=== PATIENT | female | born 1950 | race Caucasian/White ===

== ENCOUNTER 2022-05-03 15:04 | Inpatient (IN) ==
[2022-05-03] MEDS ORDERED: hydrALAZINE 20 MG/1 ML VIAL IV PRN (19:22)
[2022-05-03] MEDS ORDERED: GLUCAGON 1 MG VIAL IM PRN (19:22)
[2022-05-03] MEDS: ACETAMINOPHEN 325 MG TABLET PO PRN (19:24)
[2022-05-03] MEDS ORDERED: DEXTROSE 10% 250 ML BAG IV PRN (19:27)
[2022-05-03 19:53] LABS: Basophils # 0.1 10*3/uL (0.0-0.2); Basophils % 0.5 % (0.0-0.8); Eosinophils # 2.7 10*3/uL (0.0-0.87); Eosinophils % 29.2 % (0.00-10.9); Hematocrit 28.7 VOL% (35.7-47.0); Hemoglobin 9.6 GM/DL (12.0-16.0); Immature Granulocytes % 0.6 %; Immature Granulocytes Absolute 0.06 #; Lymphocytes # 0.7 10*3/uL (1.4-4.0); Lymphocytes % 7.8 % (21.3-54.2); Mean Corpuscular HGB Conc 33.4 GM/DL (32-36); Mean Corpuscular Volume 88.9 FL (87-102); Mean Platelet Volume 10.9 FL (9.6-12.0); Monocytes # 0.4 10*3/uL (0.11-0.8); Monocytes % 4.7 % (1.7-12.7); Neutrophils % 57.2 % (38.7-73.9); Platelet Count 128 T/CUMM (130-400); Red Blood Count 3.23 MC/CUMM (3.8-5.5); Red Cell Distribution Width 14.6 % (9.3-17.3); White Blood Count 9.3 T/CUMM (4-12)
[2022-05-03] MEDS ORDERED: AZITHROMYCIN INJ 500 MG in SODIUM CHLORIDE 0.9% 250 ML IV SCH (20:00)
[2022-05-03 20:13] LABS: Albumin 2.4 G/DL (3.4-5.0); Bilirubin,Total 0.4 MG/DL (0.20-1.00); Calcium 7.3 MG/DL (8.5-10.1); Osmolality,Calculated 285.8 MOS/KG (273-304); Potassium 4.1 MMOL/L (3.5-5.1); Total Protein 5.4 G/DL (6.4-8.2)
[2022-05-03] MEDS: LACTATED RINGERS 1,000 ML IV SCH (20:24)
[2022-05-03 20:29] LABS: Mucus,Urine Occasional /LPF (Occasional); Protein,Urine >=300 mg/dL (Negative); RBC,Urine 5 /HPF (0-4); Squamous Epithelial Cell,Urine Occasional /HPF (0-10); Urine Appearance Clear (Clear); Urine Color Yellow (Yellow); Urine pH 5.5 (4.5-8.0)
[2022-05-03 20:30] LABS: Bilirubin,Urine Negative (Negative); Blood, Urine Negative (Negative); Glucose,Urine (UA) Negative (Negative); Ketones,Urine Negative (Negative); Nitrite,Urine Negative (Negative); Urine Urobilinogen 0.2 eU/dL (<2.0)
[2022-05-03 21:11] LABS: Eosinophils 23 % (0-10); Lymphocytes 3 % (20-55); Platelet Estimate Adequate; Total Cells Counted 100
[2022-05-03] MEDS: ENOXAPARIN 30 MG/0.3 ML SYRINGE SUBCUT SCH (21:39)
[2022-05-03 22:37] LABS: Sedimentation Rate-Westergren 82 MM/HR (0-30)
[2022-05-04] MEDS: ALBUTEROL/IPRATROPIUM 3 ML NEB RESP TX SCH ×4 (02:51→19:33)
[2022-05-04] MEDS: ACETAMINOPHEN 325 MG TABLET PO PRN ×4 (04:12→21:25)
[2022-05-04 04:36] LABS: Basophils # 0.1 10*3/uL (0.0-0.2); Basophils % 0.5 % (0.0-0.8); Eosinophils # 2.9 10*3/uL (0.0-0.87); Eosinophils % 28.8 % (0.00-10.9); Hematocrit 30.8 VOL% (35.7-47.0); Hemoglobin 9.8 GM/DL (12.0-16.0); Immature Granulocytes % 0.7 %; Immature Granulocytes Absolute 0.07 #; Lymphocytes # 1.2 10*3/uL (1.4-4.0); Mean Corpuscular HGB Conc 31.8 GM/DL (32-36); Mean Corpuscular Volume 91.7 FL (87-102); Mean Platelet Volume 11.2 FL (9.6-12.0); Monocytes # 0.5 10*3/uL (0.11-0.8); Monocytes % 4.8 % (1.7-12.7); Neutrophils % 53.2 % (38.7-73.9); Platelet Count 138 T/CUMM (130-400); Red Blood Count 3.36 MC/CUMM (3.8-5.5); Red Cell Distribution Width 14.8 % (9.3-17.3); White Blood Count 9.9 T/CUMM (4-12)
[2022-05-04] MEDS: LACTATED RINGERS 1,000 ML IV SCH ×5 (04:49→22:17)
[2022-05-04 05:02] LABS: Band Neutrophils 2 % (0-10); Eosinophils 26 % (0-10); Lymphocytes 6 % (20-55)
[2022-05-04 05:04] LABS: Platelet Estimate Adequate
[2022-05-04 05:05] LABS: Alanine Aminotransferase 32 U/L (13-56); Albumin 2.4 G/DL (3.4-5.0); Alkaline Phosphatase 24 U/L (45-117); Aspartate Amino Transferase 22 U/L (0-37); Bilirubin,Total < 0.39 MG/DL (0.20-1.00); Blood Urea Nitrogen 50 MG/DL (7-18); Calcium 7.7 MG/DL (8.5-10.1); Carbon Dioxide 21 MMOL/L (21-32); Chloride 110 MMOL/L (98-107); Glucose 147 MG/DL (74-106); Osmolality,Calculated 294.4 MOS/KG (273-304); Potassium 3.9 MMOL/L (3.5-5.1); Sodium 140 MMOL/L (136-145); Total Cells Counted 100; Total Protein 5.5 G/DL (6.4-8.2)
[2022-05-04 05:43] LABS: Risk Ratio 5.37
[2022-05-04] MEDS: PANTOPRAZOLE 40 MG TABLET PO SCH (05:48)
[2022-05-04] MEDS: amLODIPine 10 MG TABLET PO SCH (09:37)
[2022-05-04] MEDS: diphenhydrAMINE CAP 25 MG CAPSULE PO PRN ×2 (09:38→21:24)
[2022-05-04] MEDS: ENOXAPARIN 30 MG/0.3 ML SYRINGE SUBCUT SCH (20:17)
[2022-05-04] MEDS: predniSONE 20 MG TABLET PO SCH (20:17)
[2022-05-05] MEDS: ALBUTEROL/IPRATROPIUM 3 ML NEB RESP TX SCH ×4 (01:44→19:20)
[2022-05-05] MEDS: LACTATED RINGERS 1,000 ML IV SCH (04:29)
[2022-05-05] MEDS: PANTOPRAZOLE 40 MG TABLET PO SCH (05:15)
[2022-05-05] MEDS: predniSONE 20 MG TABLET PO SCH ×3 (07:58→20:30)
[2022-05-05] MEDS: amLODIPine 10 MG TABLET PO SCH ×2 (07:58→08:53)
[2022-05-05 08:04] LABS: Alanine Aminotransferase 34 U/L (13-56); Albumin 2.1 G/DL (3.4-5.0); Alkaline Phosphatase 21 U/L (45-117); Aspartate Amino Transferase 19 U/L (0-37); Bilirubin,Total < 0.39 MG/DL (0.20-1.00); Blood Urea Nitrogen 49 MG/DL (7-18); Calcium 7.7 MG/DL (8.5-10.1); Carbon Dioxide 20 MMOL/L (21-32); Chloride 110 MMOL/L (98-107); Glucose 163 MG/DL (74-106); Osmolality,Calculated 291.7 MOS/KG (273-304); Potassium 4.6 MMOL/L (3.5-5.1); Sodium 138 MMOL/L (136-145); Total Protein 5.7 G/DL (6.4-8.2)
[2022-05-05 08:18] LABS: Basophils % 0.6 % (0.0-0.8); Eosinophils # 0.1 10*3/uL (0.0-0.87); Eosinophils % 1.9 % (0.00-10.9); Hematocrit 28.9 VOL% (35.7-47.0); Hemoglobin 9.5 GM/DL (12.0-16.0); Immature Granulocytes % 0.8 %; Immature Granulocytes Absolute 0.04 #; Lymphocytes # 0.6 10*3/uL (1.4-4.0); Lymphocytes % 12.4 % (21.3-54.2); Mean Corpuscular HGB Conc 32.9 GM/DL (32-36); Mean Corpuscular Volume 89.2 FL (87-102); Mean Platelet Volume 11.3 FL (9.6-12.0); Monocytes # 0.1 10*3/uL (0.11-0.8); Monocytes % 2.1 % (1.7-12.7); Neutrophils % 82.2 % (38.7-73.9); Platelet Count 151 T/CUMM (130-400); Red Blood Count 3.24 MC/CUMM (3.8-5.5); Red Cell Distribution Width 14.9 % (9.3-17.3); White Blood Count 4.8 T/CUMM (4-12)
[2022-05-05 08:33] LABS: Calcium 7.7 MG/DL (8.5-10.1); Osmolality,Calculated 292.7 MOS/KG (273-304); Potassium 4.2 MMOL/L (3.5-5.1)
[2022-05-05 08:39] LABS: Band Neutrophils 1 % (0-10); Eosinophils 1 % (0-10); Hypochromia Slight; Lymphocytes 12 % (20-55); Microcytosis Slight; Platelet Estimate Adequate; Total Cells Counted 100
[2022-05-05] MEDS ORDERED: DOCUSATE SODIUM 100 MG CAPSULE PO PRN (08:54)
[2022-05-05] MEDS: ACETAMINOPHEN 325 MG TABLET PO PRN ×2 (09:04→21:40)
[2022-05-05] MEDS ORDERED: SODIUM CHLORIDE 0.9% 1,000 ML IV SCH (09:30)
[2022-05-05 13:11] LABS: DRVVT Screen Ratio 1.27 ratio (<1.20); INR 1.4 (0.9-1.1)
[2022-05-05] MEDS ORDERED: GLUCAGON 1 MG VIAL IM PRN (13:58)
[2022-05-05] MEDS ORDERED: DEXTROSE 10% 250 ML BAG IV PRN (14:00)
[2022-05-05] MEDS: SODIUM BICARB INJ 50 MEQ in DEXTROSE 5% NACL 0.45% 1,000 ML IV SCH ×2 (14:25→20:30)
[2022-05-05] MEDS: INSULIN REGULAR 100 UNIT/ML SUBCUT SCH ×2 (17:05→20:30)
[2022-05-05] MEDS: PRIMIDONE 50 MG TABLET PO SCH (20:30)
[2022-05-05] MEDS: ENOXAPARIN 30 MG/0.3 ML SYRINGE SUBCUT SCH (20:30)
[2022-05-06] MEDS: ALBUTEROL/IPRATROPIUM 3 ML NEB RESP TX SCH ×5 (00:34→23:27)
[2022-05-06 05:15] LABS: Basophils % 0.5 % (0.0-0.8); Eosinophils # 0.1 10*3/uL (0.0-0.87); Eosinophils % 0.8 % (0.00-10.9); Hematocrit 27.2 VOL% (35.7-47.0); Hemoglobin 9.1 GM/DL (12.0-16.0); Immature Granulocytes % 1.1 %; Immature Granulocytes Absolute 0.07 #; Lymphocytes # 0.8 10*3/uL (1.4-4.0); Lymphocytes % 11.9 % (21.3-54.2); Mean Corpuscular HGB Conc 33.5 GM/DL (32-36); Mean Corpuscular Volume 88.9 FL (87-102); Mean Platelet Volume 11.3 FL (9.6-12.0); Monocytes # 0.4 10*3/uL (0.11-0.8); Monocytes % 5.6 % (1.7-12.7); Neutrophils % 80.1 % (38.7-73.9); Platelet Count 144 T/CUMM (130-400); Red Blood Count 3.06 MC/CUMM (3.8-5.5); Red Cell Distribution Width 15.1 % (9.3-17.3); White Blood Count 6.7 T/CUMM (4-12)
[2022-05-06 05:33] LABS: Calcium 7.7 MG/DL (8.5-10.1); Potassium 4.5 MMOL/L (3.5-5.1)
[2022-05-06] MEDS: PANTOPRAZOLE 40 MG TABLET PO SCH (05:35)
[2022-05-06 06:55] LABS: Hepatitis B Core IgM Quant 0.15 Index; Hepatitis B Surface Ag Quant < 0.10 Index; Hepatitis B Surface Ag Result Non-Reactive (NonReactive); Hepatitis C Virus Ab Quant 0.25 Index; Hepatitis C Virus Ab Result Non-Reactive (NonReactive)
[2022-05-06] MEDS: amLODIPine 10 MG TABLET PO SCH (09:02)
[2022-05-06] MEDS: predniSONE 20 MG TABLET PO SCH ×2 (09:02→21:03)
[2022-05-06] MEDS: INSULIN REGULAR 100 UNIT/ML SUBCUT SCH ×4 (09:03→21:40)
[2022-05-06] MEDS: ACETAMINOPHEN 325 MG TABLET PO PRN (09:12)
[2022-05-06] MEDS: SODIUM BICARB INJ 50 MEQ in DEXTROSE 5% NACL 0.45% 1,000 ML IV SCH (09:44)
[2022-05-06] MEDS ORDERED: SODIUM BICARB INJ 50 MEQ in DEXTROSE 5% NACL 0.45% 1,000 ML IV SCH (13:09)
[2022-05-06] MEDS: LOPERAMIDE 2 MG CAPSULE PO PRN (13:34)
[2022-05-06] MEDS ORDERED: VANCOMYCIN INJ 1,250 MG in SODIUM CHLORIDE 0.9% 250 ML IV SCH (19:00)
[2022-05-06] MEDS ORDERED: cefTRIAXone 1,000 MG in SODIUM CHLORIDE 0.9% 100 ML IV SCH (19:30)
[2022-05-06] MEDS ORDERED: VANCOMYCIN INJ 750 MG in SODIUM CHLORIDE 0.9% 250 ML IV PRN (19:51)
[2022-05-06] MEDS ORDERED: AZITHROMYCIN INJ 500 MG in SODIUM CHLORIDE 0.9% 250 ML IV SCH (20:00)
[2022-05-06] MEDS ORDERED: VANCOMYCIN INJ 1,750 MG in SODIUM CHLORIDE 0.9% 500 ML IV ONE (21:00)
[2022-05-06] MEDS: DEXTROSE 5% NACL 0.9% 1,000 ML IV SCH (21:02)
[2022-05-06] MEDS: ENOXAPARIN 30 MG/0.3 ML SYRINGE SUBCUT SCH (21:03)
[2022-05-06] MEDS: PRIMIDONE 50 MG TABLET PO SCH (21:03)
[2022-05-06] MEDS: diphenhydrAMINE CAP 25 MG CAPSULE PO PRN (22:33)
[2022-05-07] MEDS: ALBUTEROL/IPRATROPIUM 3 ML NEB RESP TX SCH ×5 (03:06→19:34)
[2022-05-07 04:54] LABS: Basophils % 0.2 % (0.0-0.8); Eosinophils % 0.2 % (0.00-10.9); Hematocrit 26.3 VOL% (35.7-47.0); Hemoglobin 8.6 GM/DL (12.0-16.0); Immature Granulocytes % 0.9 %; Immature Granulocytes Absolute 0.09 #; Lymphocytes # 0.5 10*3/uL (1.4-4.0); Lymphocytes % 5.4 % (21.3-54.2); Mean Corpuscular HGB Conc 32.7 GM/DL (32-36); Mean Corpuscular Volume 88.3 FL (87-102); Mean Platelet Volume 10.9 FL (9.6-12.0); Monocytes # 0.4 10*3/uL (0.11-0.8); Monocytes % 4.3 % (1.7-12.7); Platelet Count 197 T/CUMM (130-400); Red Blood Count 2.98 MC/CUMM (3.8-5.5); Red Cell Distribution Width 15.3 % (9.3-17.3); White Blood Count 9.8 T/CUMM (4-12)
[2022-05-07 05:23] LABS: Alanine Aminotransferase 30 U/L (13-56); Albumin 2.4 G/DL (3.4-5.0); Alkaline Phosphatase 21 U/L (45-117); Aspartate Amino Transferase 17 U/L (0-37); Bilirubin,Total < 0.39 MG/DL (0.20-1.00); Blood Urea Nitrogen 61 MG/DL (7-18); Calcium 7.4 MG/DL (8.5-10.1); Carbon Dioxide 19 MMOL/L (21-32); Chloride 106 MMOL/L (98-107); Glucose 168 MG/DL (74-106); Osmolality,Calculated 288.2 MOS/KG (273-304); Potassium 4.3 MMOL/L (3.5-5.1); Sodium 134 MMOL/L (136-145); Total Protein 5.9 G/DL (6.4-8.2)
[2022-05-07] MEDS: PANTOPRAZOLE 40 MG TABLET PO SCH (05:31)
[2022-05-07] MEDS: diphenhydrAMINE CAP 25 MG CAPSULE PO PRN ×2 (08:49→21:57)
[2022-05-07] MEDS: amLODIPine 10 MG TABLET PO SCH (08:50)
[2022-05-07] MEDS: predniSONE 20 MG TABLET PO SCH (08:50)
[2022-05-07] MEDS: INSULIN REGULAR 100 UNIT/ML SUBCUT SCH ×4 (08:50→21:58)
[2022-05-07] MEDS: methylPREDNISolone SOD SUC 125 MG/2 ML VIAL IV SCH ×3 (11:31→21:46)
[2022-05-07] MEDS: LOPERAMIDE 2 MG CAPSULE PO PRN ×3 (11:31→21:47)
[2022-05-07] MEDS: LEVOFLOXACIN INJ 500 MG/100 ML PREMIX IV SCH ×2 (11:32→11:40)
[2022-05-07] MEDS: DOXYCYCLINE HYCLATE INJ 100 MG in SODIUM CHLORIDE 0.9% 100 ML IV SCH (15:04)
[2022-05-07] MEDS: DEXTROSE 5% NACL 0.9% 1,000 ML IV SCH (15:05)
[2022-05-07 15:06] LABS: Phospholipid Ab IgM, S 18.9 MPL
[2022-05-07] MEDS: ENOXAPARIN 30 MG/0.3 ML SYRINGE SUBCUT SCH (21:47)
[2022-05-07] MEDS: PRIMIDONE 50 MG TABLET PO SCH (21:48)
[2022-05-08] MEDS: ALBUTEROL/IPRATROPIUM 3 ML NEB RESP TX SCH ×7 (00:03→23:37)
[2022-05-08] MEDS: DOXYCYCLINE HYCLATE INJ 100 MG in SODIUM CHLORIDE 0.9% 100 ML IV SCH ×3 (00:16→23:43)
[2022-05-08] MEDS: methylPREDNISolone SOD SUC 125 MG/2 ML VIAL IV SCH ×4 (04:21→21:45)
[2022-05-08] MEDS: DEXTROSE 5% NACL 0.9% 1,000 ML IV SCH ×4 (04:21→21:47)
[2022-05-08 05:46] LABS: Basophils % 0.2 % (0.0-0.8); Hemoglobin 8.9 GM/DL (12.0-16.0); Immature Granulocytes % 1.6 %; Immature Granulocytes Absolute 0.08 #; Lymphocytes # 0.5 10*3/uL (1.4-4.0); Lymphocytes % 9.7 % (21.3-54.2); Mean Corpuscular Volume 88.8 FL (87-102); Mean Platelet Volume 10.8 FL (9.6-12.0); Monocytes # 0.1 10*3/uL (0.11-0.8); Monocytes % 1.2 % (1.7-12.7); Neutrophils % 87.3 % (38.7-73.9); Platelet Count 240 T/CUMM (130-400); Red Blood Count 3.04 MC/CUMM (3.8-5.5); Red Cell Distribution Width 15.6 % (9.3-17.3); White Blood Count 4.9 T/CUMM (4-12)
[2022-05-08 06:31] LABS: Alanine Aminotransferase 40 U/L (13-56); Albumin 2.7 G/DL (3.4-5.0); Alkaline Phosphatase 23 U/L (45-117); Aspartate Amino Transferase 21 U/L (0-37); Bilirubin,Total < 0.39 MG/DL (0.20-1.00); Blood Urea Nitrogen 75 MG/DL (7-18); Calcium 7.3 MG/DL (8.5-10.1); Carbon Dioxide 19 MMOL/L (21-32); Chloride 107 MMOL/L (98-107); Glucose 188 MG/DL (74-106); Osmolality,Calculated 294.2 MOS/KG (273-304); Potassium 4.8 MMOL/L (3.5-5.1); Sodium 134 MMOL/L (136-145); Total Protein 6.4 G/DL (6.4-8.2)
[2022-05-08] MEDS: ACETAMINOPHEN 325 MG TABLET PO PRN ×3 (08:05→23:42)
[2022-05-08] MEDS: diphenhydrAMINE CAP 25 MG CAPSULE PO PRN ×2 (08:05→21:46)
[2022-05-08] MEDS: INSULIN REGULAR 100 UNIT/ML SUBCUT SCH ×4 (08:06→21:45)
[2022-05-08] MEDS: amLODIPine 10 MG TABLET PO SCH (08:06)
[2022-05-08 10:35] LABS: Calcium 6.8 MG/DL (8.5-10.1); Osmolality,Calculated 309.7 MOS/KG (273-304); Potassium 4.2 MMOL/L (3.5-5.1)
[2022-05-08] MEDS: LOPERAMIDE 2 MG CAPSULE PO PRN ×2 (12:37→18:03)
[2022-05-08] MEDS: ONDANSETRON 4 MG/2 ML VIAL IV PRN (15:25)
[2022-05-08 18:11] LABS: CDT Result Negative (Negative); CDT Specimen Source STOOL
[2022-05-08] MEDS: PRIMIDONE 50 MG TABLET PO SCH (21:46)
[2022-05-08] MEDS: ENOXAPARIN 30 MG/0.3 ML SYRINGE SUBCUT SCH (21:46)
[2022-05-09] MEDS: ALBUTEROL/IPRATROPIUM 3 ML NEB RESP TX SCH ×6 (03:20→23:53)
[2022-05-09] MEDS: methylPREDNISolone SOD SUC 125 MG/2 ML VIAL IV SCH ×4 (04:50→22:10)
[2022-05-09 05:17] LABS: Basophils % 0.2 % (0.0-0.8); Hematocrit 25.4 VOL% (35.7-47.0); Hemoglobin 8.1 GM/DL (12.0-16.0); Immature Granulocytes % 1.3 %; Immature Granulocytes Absolute 0.07 #; Lymphocytes # 0.5 10*3/uL (1.4-4.0); Lymphocytes % 9.1 % (21.3-54.2); Mean Corpuscular HGB Conc 31.9 GM/DL (32-36); Mean Corpuscular Volume 90.4 FL (87-102); Mean Platelet Volume 10.9 FL (9.6-12.0); Monocytes # 0.1 10*3/uL (0.11-0.8); Monocytes % 2.1 % (1.7-12.7); Neutrophils % 87.3 % (38.7-73.9); Platelet Count 243 T/CUMM (130-400); Red Blood Count 2.81 MC/CUMM (3.8-5.5); Red Cell Distribution Width 15.7 % (9.3-17.3); White Blood Count 5.3 T/CUMM (4-12)
[2022-05-09] MEDS: DEXTROSE 5% NACL 0.9% 1,000 ML IV SCH ×2 (05:37→17:37)
[2022-05-09 05:42] LABS: Calcium 7.1 MG/DL (8.5-10.1); Potassium 4.3 MMOL/L (3.5-5.1)
[2022-05-09] MEDS: amLODIPine 10 MG TABLET PO SCH (08:18)
[2022-05-09] MEDS: INSULIN REGULAR 100 UNIT/ML SUBCUT SCH ×4 (08:18→22:07)
[2022-05-09 08:41] LABS: Bacteria,Urine Occasional /HPF (Few); Glucose,Urine (UA) 100 mg/dL (Negative); Ketones,Urine Negative (Negative); Mucus,Urine Occasional /LPF (Occasional); Nitrite,Urine Negative (Negative); Protein,Urine Trace mg/dL (Negative); RBC,Urine 6 /HPF (0-4); Urine Appearance Clear (Clear); Urine Color Yellow (Yellow); Urine Specific Gravity 1.015 (1.001-1.035); Urine pH 5.5 (4.5-8.0)
[2022-05-09 08:42] LABS: Bilirubin,Urine Negative (Negative); Blood, Urine Small mg/dL (Negative); Urine Urobilinogen 0.2 eU/dL (<2.0)
[2022-05-09] MEDS ORDERED: FUROSEMIDE 40 MG/4 ML VIAL IV ONE (10:30)
[2022-05-09] MEDS: ACETAMINOPHEN 325 MG TABLET PO PRN ×2 (10:39→17:20)
[2022-05-09] MEDS: diphenhydrAMINE CAP 25 MG CAPSULE PO PRN ×2 (10:39→22:06)
[2022-05-09] MEDS: FAMOTIDINE 20 MG/2 ML VIAL IV SCH ×2 (12:24→22:26)
[2022-05-09] MEDS: traMADol 50 MG TABLET PO PRN ×2 (12:24→22:06)
[2022-05-09] MEDS: DOXYCYCLINE HYCLATE INJ 100 MG in SODIUM CHLORIDE 0.9% 100 ML IV SCH (12:25)
[2022-05-09] MEDS: ENOXAPARIN 30 MG/0.3 ML SYRINGE SUBCUT SCH (22:06)
[2022-05-09] MEDS: ONDANSETRON 4 MG/2 ML VIAL IV PRN (22:06)
[2022-05-09] MEDS: PRIMIDONE 50 MG TABLET PO SCH (22:07)
[2022-05-10] MEDS: DOXYCYCLINE HYCLATE INJ 100 MG in SODIUM CHLORIDE 0.9% 100 ML IV SCH ×3 (00:29→23:09)
[2022-05-10] MEDS: ALBUTEROL/IPRATROPIUM 3 ML NEB RESP TX SCH ×6 (02:54→23:51)
[2022-05-10] MEDS: DEXTROSE 5% NACL 0.9% 1,000 ML IV SCH ×3 (04:20→23:13)
[2022-05-10] MEDS: methylPREDNISolone SOD SUC 125 MG/2 ML VIAL IV SCH (04:22)
[2022-05-10 05:47] LABS: Calcium 7.1 MG/DL (8.5-10.1); Osmolality,Calculated 303.7 MOS/KG (273-304); Potassium 4.6 MMOL/L (3.5-5.1)
[2022-05-10] MEDS: INSULIN REGULAR 100 UNIT/ML SUBCUT SCH ×4 (08:45→20:50)
[2022-05-10] MEDS: ONDANSETRON 4 MG/2 ML VIAL IV PRN ×2 (08:47→16:51)
[2022-05-10] MEDS: traMADol 50 MG TABLET PO PRN ×2 (08:52→20:49)
[2022-05-10] MEDS: diphenhydrAMINE CAP 25 MG CAPSULE PO PRN ×3 (08:52→23:18)
[2022-05-10] MEDS: amLODIPine 10 MG TABLET PO SCH (08:53)
[2022-05-10 10:15] LABS: Myeloperoxidase Antibody < 0.2 U
[2022-05-10] MEDS: FAMOTIDINE 20 MG/2 ML VIAL IV SCH (11:36)
[2022-05-10 12:47] LABS: Cyclic Citrull Peptide Interp Negative
[2022-05-10] MEDS: predniSONE 20 MG TABLET PO SCH (13:58)
[2022-05-10] MEDS: PRIMIDONE 50 MG TABLET PO SCH (20:49)
[2022-05-10] MEDS: ENOXAPARIN 30 MG/0.3 ML SYRINGE SUBCUT SCH (20:50)
[2022-05-10] MEDS: ACETAMINOPHEN 325 MG TABLET PO PRN (23:12)
[2022-05-11] MEDS: ALBUTEROL/IPRATROPIUM 3 ML NEB RESP TX SCH ×6 (03:40→23:50)
[2022-05-11] MEDS: FAMOTIDINE 20 MG/2 ML VIAL IV SCH ×2 (04:34→15:20)
[2022-05-11 05:11] LABS: Calcium 7.2 MG/DL (8.5-10.1); Osmolality,Calculated 301.5 MOS/KG (273-304); Potassium 3.9 MMOL/L (3.5-5.1)
[2022-05-11] MEDS: ACETAMINOPHEN 325 MG TABLET PO PRN (09:13)
[2022-05-11] MEDS: amLODIPine 10 MG TABLET PO SCH (09:14)
[2022-05-11] MEDS: diphenhydrAMINE CAP 25 MG CAPSULE PO PRN (09:14)
[2022-05-11] MEDS: predniSONE 20 MG TABLET PO SCH (09:15)
[2022-05-11] MEDS: ONDANSETRON 4 MG/2 ML VIAL IV PRN ×2 (09:15→23:00)
[2022-05-11] MEDS: INSULIN REGULAR 100 UNIT/ML SUBCUT SCH ×4 (09:18→20:45)
[2022-05-11] MEDS: DOXYCYCLINE HYCLATE INJ 100 MG in SODIUM CHLORIDE 0.9% 100 ML IV SCH (11:34)
[2022-05-11] MEDS ORDERED: FUROSEMIDE 40 MG/4 ML VIAL IV ONE (12:27)
[2022-05-11] MEDS: CALCIUM CARBONATE CHEW 500 MG TABLET PO SCH ×2 (15:24→20:45)
[2022-05-11] MEDS: DEXTROSE 5% NACL 0.9% 1,000 ML IV SCH (19:40)
[2022-05-11] MEDS: traMADol 50 MG TABLET PO PRN (20:44)
[2022-05-11] MEDS: ENOXAPARIN 30 MG/0.3 ML SYRINGE SUBCUT SCH (20:45)
[2022-05-11] MEDS: PRIMIDONE 50 MG TABLET PO SCH (20:45)
[2022-05-12] MEDS: DOXYCYCLINE HYCLATE INJ 100 MG in SODIUM CHLORIDE 0.9% 100 ML IV SCH ×2 (00:07→12:26)
[2022-05-12] MEDS: ACETAMINOPHEN 325 MG TABLET PO PRN ×2 (00:07→10:12)
[2022-05-12] MEDS: diphenhydrAMINE CAP 25 MG CAPSULE PO PRN (00:07)
[2022-05-12] MEDS: ALBUTEROL/IPRATROPIUM 3 ML NEB RESP TX SCH ×6 (03:45→23:53)
[2022-05-12] MEDS: FAMOTIDINE 20 MG/2 ML VIAL IV SCH ×2 (03:55→15:31)
[2022-05-12 08:14] LABS: Osmolality,Calculated 305.3 MOS/KG (273-304); Potassium 3.8 MMOL/L (3.5-5.1)
[2022-05-12] MEDS: INSULIN REGULAR 100 UNIT/ML SUBCUT SCH ×4 (09:02→20:25)
[2022-05-12] MEDS: amLODIPine 10 MG TABLET PO SCH (09:24)
[2022-05-12] MEDS: CALCIUM CARBONATE CHEW 500 MG TABLET PO SCH ×3 (09:24→20:25)
[2022-05-12] MEDS: predniSONE 20 MG TABLET PO SCH (09:25)
[2022-05-12 09:37] LABS: DRVVT Confirmation 0.89 ratio (<1.20); PT Mix 1:1 (Mayo Reflex) 12.5 sec (9.4 - 12.5); Thrombin Time (Bovine), P 21.1 sec
[2022-05-12] MEDS ORDERED: FUROSEMIDE 40 MG/4 ML VIAL IV ONE (09:55)
[2022-05-12] MEDS: ONDANSETRON 4 MG/2 ML VIAL IV PRN ×2 (15:32→19:34)
[2022-05-12] MEDS: LOPERAMIDE 2 MG CAPSULE PO PRN (19:34)
[2022-05-12] MEDS: PRIMIDONE 50 MG TABLET PO SCH (20:24)
[2022-05-12] MEDS: ENOXAPARIN 30 MG/0.3 ML SYRINGE SUBCUT SCH (20:25)
[2022-05-13] MEDS: ALBUTEROL/IPRATROPIUM 3 ML NEB RESP TX SCH ×5 (03:30→20:25)
[2022-05-13] MEDS: FAMOTIDINE 20 MG/2 ML VIAL IV SCH ×2 (03:38→17:52)
[2022-05-13 06:21] LABS: Calcium 7.3 MG/DL (8.5-10.1); Osmolality,Calculated 301.4 MOS/KG (273-304); Potassium 3.3 MMOL/L (3.5-5.1)
[2022-05-13] MEDS: ONDANSETRON 4 MG/2 ML VIAL IV PRN ×2 (06:26→15:35)
[2022-05-13] MEDS: INSULIN REGULAR 100 UNIT/ML SUBCUT SCH ×4 (08:13→21:59)
[2022-05-13] MEDS ORDERED: ONDANSETRON 4 MG/2 ML VIAL IV ONE (09:08)
[2022-05-13] MEDS: CITALOPRAM 20 MG TABLET PO SCH (09:39)
[2022-05-13] MEDS: predniSONE 20 MG TABLET PO SCH (09:39)
[2022-05-13] MEDS: amLODIPine 10 MG TABLET PO SCH (09:39)
[2022-05-13] MEDS: CALCIUM CARBONATE CHEW 500 MG TABLET PO SCH ×3 (09:41→22:02)
[2022-05-13] MEDS: traMADol 50 MG TABLET PO PRN ×2 (11:21→22:09)
[2022-05-13] MEDS: ACETAMINOPHEN 325 MG TABLET PO PRN (15:34)
[2022-05-13] MEDS: PRIMIDONE 50 MG TABLET PO SCH (22:02)
[2022-05-13] MEDS: ENOXAPARIN 30 MG/0.3 ML SYRINGE SUBCUT SCH (22:02)
[2022-05-14] MEDS: ALBUTEROL/IPRATROPIUM 3 ML NEB RESP TX SCH ×6 (00:38→21:58)
[2022-05-14] MEDS: FAMOTIDINE 20 MG/2 ML VIAL IV SCH ×2 (04:40→15:36)
[2022-05-14 05:10] LABS: Calcium 6.8 MG/DL (8.5-10.1); Osmolality,Calculated 290.5 MOS/KG (273-304); Potassium 3.3 MMOL/L (3.5-5.1)
[2022-05-14] MEDS: traMADol 50 MG TABLET PO PRN (07:43)
[2022-05-14] MEDS: INSULIN REGULAR 100 UNIT/ML SUBCUT SCH ×4 (08:11→21:22)
[2022-05-14] MEDS: predniSONE 20 MG TABLET PO SCH (09:46)
[2022-05-14] MEDS: CALCIUM CARBONATE CHEW 500 MG TABLET PO SCH ×3 (09:46→21:23)
[2022-05-14] MEDS: CITALOPRAM 20 MG TABLET PO SCH (09:46)
[2022-05-14] MEDS: amLODIPine 10 MG TABLET PO SCH (09:46)
[2022-05-14] MEDS: ONDANSETRON 4 MG/2 ML VIAL IV PRN (11:22)
[2022-05-14] MEDS ORDERED: PROCHLORPERAZINE 5 MG TABLET PO SCH (15:00)
[2022-05-14] MEDS: ONDANSETRON 4 MG/2 ML VIAL IV SCH ×3 (15:34→23:29)
[2022-05-14] MEDS: BACILLUS COAGULANS CAPLET PO SCH (15:47)
[2022-05-14] MEDS: PROCHLORPERAZINE 10 MG TABLET PO SCH ×2 (15:47→21:14)
[2022-05-14] MEDS: PRIMIDONE 50 MG TABLET PO SCH (21:22)
[2022-05-14] MEDS: ENOXAPARIN 30 MG/0.3 ML SYRINGE SUBCUT SCH (21:22)
[2022-05-15] MEDS: ALBUTEROL/IPRATROPIUM 3 ML NEB RESP TX SCH ×7 (01:18→23:00)
[2022-05-15] MEDS: ONDANSETRON 4 MG/2 ML VIAL IV SCH ×4 (03:30→15:25)
[2022-05-15] MEDS: FAMOTIDINE 20 MG/2 ML VIAL IV SCH ×2 (03:30→15:26)
[2022-05-15 06:47] LABS: Basophils % 0.1 % (0.0-0.8); Eosinophils # 0.5 10*3/uL (0.0-0.87); Hematocrit 31.5 VOL% (35.7-47.0); Hemoglobin 10.7 GM/DL (12.0-16.0); Immature Granulocytes % 1.5 %; Immature Granulocytes Absolute 0.18 #; Lymphocytes # 1.1 10*3/uL (1.4-4.0); Lymphocytes % 9.7 % (21.3-54.2); Mean Corpuscular Volume 85.1 FL (87-102); Mean Platelet Volume 10.5 FL (9.6-12.0); Monocytes # 0.7 10*3/uL (0.11-0.8); Monocytes % 5.9 % (1.7-12.7); Neutrophils % 78.8 % (38.7-73.9); Platelet Count 335 T/CUMM (130-400); Red Cell Distribution Width 14.9 % (9.3-17.3); White Blood Count 11.8 T/CUMM (4-12)
[2022-05-15 07:03] LABS: Calcium 6.8 MG/DL (8.5-10.1); Osmolality,Calculated 290.4 MOS/KG (273-304); Potassium 3.2 MMOL/L (3.5-5.1)
[2022-05-15] MEDS: INSULIN REGULAR 100 UNIT/ML SUBCUT SCH ×4 (07:44→21:10)
[2022-05-15] MEDS: BACILLUS COAGULANS CAPLET PO SCH (10:00)
[2022-05-15] MEDS: amLODIPine 10 MG TABLET PO SCH (10:00)
[2022-05-15] MEDS: CITALOPRAM 20 MG TABLET PO SCH (10:01)
[2022-05-15] MEDS: CALCIUM CARBONATE CHEW 500 MG TABLET PO SCH ×3 (10:01→21:10)
[2022-05-15] MEDS: PROCHLORPERAZINE 10 MG TABLET PO SCH ×3 (10:01→21:10)
[2022-05-15] MEDS: SCOPOLAMINE 1.5 MG PATCH TRANSDERM SCH (15:20)
[2022-05-15] MEDS: PRIMIDONE 50 MG TABLET PO SCH (21:10)
[2022-05-15] MEDS: ENOXAPARIN 30 MG/0.3 ML SYRINGE SUBCUT SCH (22:28)
[2022-05-16] MEDS: ONDANSETRON 4 MG/2 ML VIAL IV SCH ×8 (01:25→23:15)
[2022-05-16] MEDS: FAMOTIDINE 20 MG/2 ML VIAL IV SCH ×2 (03:30→16:30)
[2022-05-16] MEDS: ALBUTEROL/IPRATROPIUM 3 ML NEB RESP TX SCH ×6 (03:55→23:00)
[2022-05-16 05:15] LABS: Basophils % 0.1 % (0.0-0.8); Eosinophils % 6.9 % (0.00-10.9); Hematocrit 33.3 VOL% (35.7-47.0); Hemoglobin 10.9 GM/DL (12.0-16.0); Immature Granulocytes % 1.2 %; Immature Granulocytes Absolute 0.18 #; Lymphocytes # 1.3 10*3/uL (1.4-4.0); Lymphocytes % 8.9 % (21.3-54.2); Mean Corpuscular HGB Conc 32.7 GM/DL (32-36); Mean Corpuscular Volume 86.3 FL (87-102); Mean Platelet Volume 11.1 FL (9.6-12.0); Monocytes # 0.9 10*3/uL (0.11-0.8); Monocytes % 6.2 % (1.7-12.7); Neutrophils % 76.7 % (38.7-73.9); Platelet Count 363 T/CUMM (130-400); Red Blood Count 3.86 MC/CUMM (3.8-5.5); Red Cell Distribution Width 14.6 % (9.3-17.3); White Blood Count 14.6 T/CUMM (4-12)
[2022-05-16 05:23] LABS: Calcium 7.3 MG/DL (8.5-10.1); Osmolality,Calculated 286.4 MOS/KG (273-304); Potassium 3.1 MMOL/L (3.5-5.1)
[2022-05-16] MEDS: INSULIN REGULAR 100 UNIT/ML SUBCUT SCH ×4 (08:02→19:30)
[2022-05-16] MEDS: BACILLUS COAGULANS CAPLET PO SCH (10:17)
[2022-05-16] MEDS: CITALOPRAM 20 MG TABLET PO SCH (10:17)
[2022-05-16] MEDS: CALCIUM CARBONATE CHEW 500 MG TABLET PO SCH ×3 (10:17→22:17)
[2022-05-16] MEDS: amLODIPine 10 MG TABLET PO SCH (10:18)
[2022-05-16] MEDS: PROCHLORPERAZINE 10 MG TABLET PO SCH ×3 (10:21→19:30)
[2022-05-16] MEDS: NYSTATIN 500,000 UNIT/5 ML UDCUP SWISH/SWAL SCH ×4 (10:52→19:30)
[2022-05-16] MEDS: FLUCONAZOLE INJ 200 MG/100 ML PREMIX IV SCH (10:56)
[2022-05-16] MEDS ORDERED: POTASSIUM CHLORIDE 20 MEQ TABLET PO ONE (15:40)
[2022-05-16] MEDS: PRIMIDONE 50 MG TABLET PO SCH (19:30)
[2022-05-16] MEDS: ENOXAPARIN 30 MG/0.3 ML SYRINGE SUBCUT SCH (22:16)
[2022-05-17] MEDS: ALBUTEROL/IPRATROPIUM 3 ML NEB RESP TX SCH ×6 (03:00→20:06)
[2022-05-17] MEDS: ONDANSETRON 4 MG/2 ML VIAL IV SCH ×3 (03:00→11:51)
[2022-05-17] MEDS: FAMOTIDINE 20 MG/2 ML VIAL IV SCH ×2 (04:00→15:16)
[2022-05-17 05:30] LABS: Basophils % 0.2 % (0.0-0.8); Eosinophils % 7.7 % (0.00-10.9); Hematocrit 33.4 VOL% (35.7-47.0); Hemoglobin 10.9 GM/DL (12.0-16.0); Immature Granulocytes % 1.3 %; Immature Granulocytes Absolute 0.17 #; Lymphocytes # 1.1 10*3/uL (1.4-4.0); Lymphocytes % 8.3 % (21.3-54.2); Mean Corpuscular HGB Conc 32.6 GM/DL (32-36); Mean Corpuscular Volume 87.4 FL (87-102); Mean Platelet Volume 11.3 FL (9.6-12.0); Monocytes # 0.9 10*3/uL (0.11-0.8); Monocytes % 6.7 % (1.7-12.7); Neutrophils % 75.8 % (38.7-73.9); Platelet Count 292 T/CUMM (130-400); Red Blood Count 3.82 MC/CUMM (3.8-5.5); Red Cell Distribution Width 14.5 % (9.3-17.3); White Blood Count 13.1 T/CUMM (4-12)
[2022-05-17 05:59] LABS: Calcium 7.3 MG/DL (8.5-10.1); Osmolality,Calculated 284.4 MOS/KG (273-304); Potassium 3.5 MMOL/L (3.5-5.1)
[2022-05-17] MEDS: INSULIN REGULAR 100 UNIT/ML SUBCUT SCH ×4 (08:07→21:00)
[2022-05-17] MEDS: BACILLUS COAGULANS CAPLET PO SCH (08:09)
[2022-05-17] MEDS: CITALOPRAM 20 MG TABLET PO SCH (08:09)
[2022-05-17] MEDS: NYSTATIN 500,000 UNIT/5 ML UDCUP SWISH/SWAL SCH ×4 (08:09→22:43)
[2022-05-17] MEDS: PROCHLORPERAZINE 10 MG TABLET PO SCH (08:09)
[2022-05-17] MEDS: amLODIPine 10 MG TABLET PO SCH (08:09)
[2022-05-17] MEDS: FLUCONAZOLE INJ 200 MG/100 ML PREMIX IV SCH (08:13)
[2022-05-17] MEDS: CALCIUM CARBONATE CHEW 500 MG TABLET PO SCH (08:13)
[2022-05-17] MEDS ORDERED: ONDANSETRON 4 MG/2 ML VIAL IV PRN (14:38)
[2022-05-17] MEDS ORDERED: POTASSIUM CHLORIDE 20 MEQ TABLET PO ONE (15:00)
[2022-05-17] MEDS: ENOXAPARIN 30 MG/0.3 ML SYRINGE SUBCUT SCH (21:00)
[2022-05-17] MEDS: PRIMIDONE 50 MG TABLET PO SCH (21:00)
[2022-05-18] MEDS: ALBUTEROL/IPRATROPIUM 3 ML NEB RESP TX SCH ×4 (00:31→11:30)
[2022-05-18 05:41] LABS: Basophils % 0.2 % (0.0-0.8); Eosinophils % 6.8 % (0.00-10.9); Hematocrit 32.3 VOL% (35.7-47.0); Hemoglobin 10.8 GM/DL (12.0-16.0); Immature Granulocytes % 1.6 %; Immature Granulocytes Absolute 0.23 #; Lymphocytes # 1.1 10*3/uL (1.4-4.0); Lymphocytes % 8.1 % (21.3-54.2); Mean Corpuscular HGB Conc 33.4 GM/DL (32-36); Mean Corpuscular Volume 87.1 FL (87-102); Mean Platelet Volume 11.4 FL (9.6-12.0); Monocytes % 6.9 % (1.7-12.7); Neutrophils % 76.4 % (38.7-73.9); Platelet Count 289 T/CUMM (130-400); Red Blood Count 3.71 MC/CUMM (3.8-5.5); Red Cell Distribution Width 14.3 % (9.3-17.3)
[2022-05-18 06:09] LABS: Osmolality,Calculated 285.3 MOS/KG (273-304); Potassium 3.6 MMOL/L (3.5-5.1)
[2022-05-18] MEDS: FAMOTIDINE 20 MG/2 ML VIAL IV SCH (08:35)
[2022-05-18] MEDS: INSULIN REGULAR 100 UNIT/ML SUBCUT SCH ×2 (08:35→11:30)
[2022-05-18] MEDS ORDERED: CHOLECALCIFEROL 1,000 UNIT TABLET PO SCH (09:00)
[2022-05-18] MEDS ORDERED: CHOLECALCIFEROL 5,000 UNIT TABLET PO SCH (09:00)
[2022-05-18] MEDS: BACILLUS COAGULANS CAPLET PO SCH (10:35)
[2022-05-18] MEDS: FLUCONAZOLE INJ 200 MG/100 ML PREMIX IV SCH (10:36)
[2022-05-18] MEDS: CITALOPRAM 20 MG TABLET PO SCH (10:36)
[2022-05-18] MEDS: amLODIPine 10 MG TABLET PO SCH (10:37)
[2022-05-18] MEDS: NYSTATIN 500,000 UNIT/5 ML UDCUP SWISH/SWAL SCH ×2 (10:37→13:08)
[2022-05-18] MEDS ORDERED: ONDANSETRON 4 MG TABLET PO PRN (10:42)
[2022-05-18] MEDS: SCOPOLAMINE 1.5 MG PATCH TRANSDERM SCH (10:43)
[2022-05-18 12:33] VITALS: BP 141/75
[2022-05-19] MEDS ORDERED: FLUCONAZOLE 200 MG TABLET PO SCH (09:00)
[2022-05-19] MEDS ORDERED: FAMOTIDINE 20 MG TABLET PO SCH (21:00)
== END 2022-05-18 13:15 | DRG 689 ==
LOC: N.TELEN 17:56 → SUATTDRO 17:56
PROVIDERS: ADMIT Internal Medicine; ATTEND Hospitalist